=== PATIENT | female | born 1980 | race African-American/Black ===

== ENCOUNTER 2017-04-18 09:13 | Emergency (ER) | payer MEDICAID ==
[~2017-04-18] VITALS: Ht 170.2 cm; Wt 81.0 kg
[2017-04-18] MEDS ORDERED: BENADRYL (09:21)
[2017-04-18] MEDS ORDERED: VITAMINS (09:21)
[2017-04-18 11:26] VITALS: BP 126/84
[2017-04-18] MEDS ORDERED: PREDNISONE 20MG TABLET PO ONE (11:45)
== END 2017-04-18 11:47 | disposition home or self-care (01) ==
LOC: ER 09:55
DX: T78.40XA Allergy, unspecified, initial encounter (principal); X58.XXXA Exposure to other specified factors, initial encounter; Z91.018 Allergy to other foods; Z91.048 Other nonmedicinal substance allergy status
CPT/HCPCS: 99283; J7512

== ENCOUNTER 2023-09-11 21:32 | Emergency (ER) | payer MEDICAID, OTHER ==
[~2023-09-11] VITALS: Ht 172.7 cm; Wt 90.8 kg
[~2023-09-11 21:32] MED LIST: BENADRYL; VITAMINS
[2023-09-11 22:06] VITALS: O2SAT 99
[2023-09-11] MEDS ORDERED: NAPR-681 MT (22:43)
[2023-09-11] MEDS: LIDOCAINE 5% PATCH TOP SCH (22:56)
[2023-09-11] MEDS: ACETAMINOPHEN 325MG TABLET PO ONE (22:56)
[2023-09-11] MEDS: KETOROLAC 60MG/2ML VIAL IM ONE (22:57)
[2023-09-11 23:21] VITALS: BP 119/82; PULSE 74; RESP 20
== END 2023-09-11 23:23 | disposition home or self-care (01) ==
LOC: ER 21:32
DX: M54.50 Low back pain, unspecified (principal)
CPT/HCPCS: 99283; 96372; J1885

== ENCOUNTER 2024-06-06 15:49 | Emergency (ER) | payer OTHER ==
[~2024-06-06] VITALS: Ht 172.7 cm; Wt 82.0 kg
[~2024-06-06 15:49] MED LIST changes: +NAPR-681 MT
[2024-06-06 16:12] VITALS: O2SAT 100
[2024-06-06 16:44] LABS: CLARITY URINE CLEAR (CLEAR); COLOR URINE DARK YELLOW (YELLOW); GLUCOSE URINE NEGATIVE (NEGATIVE); KETONES URINE TRACE (NEGATIVE); LEUKOCYTE ESTERASE URINE 1+ (NEGATIVE); NITRITE URINE NEGATIVE (NEGATIVE); OCCULT BLOOD URINE 2+ (NEGATIVE); PROTEIN URINE TRACE (NEGATIVE); SPECIFIC GRAVITY URINE 1.027 (1.005-1.030)
[2024-06-06 16:45] LABS: BASOPHILS % 0.1 % (0.0-2.0); EOSINOPHILS % 0.2 % (0.0-5.0); HEMATOCRIT. 41.8 % (36.0-48.0); HEMOGLOBIN. 13.8 g/dL (12.0-16.0); LYMPHOCYTES % 26.8 % (20.0-50.0); MEAN CORPUSCULAR HEMOGLOBIN 28.5 pg (28.0-32.0); MEAN CORPUSCULAR HGB CONC 33.1 g/dL (31.0-37.0); MEAN CORPUSCULAR VOLUME 86.1 fL (81.0-99.0); MEAN PLATELET VOLUME 8.1 fl (7.4-10.4); MONOCYTES % 5.3 % (2.0-8.0); NEUTROPHILS % 67.6 % (40.0-76.0); PLATELET 323 x1000/uL (130-400); RED BLOOD CELL COUNT 4.85 mill/uL (4.2-5.4); RED CELL DISTRIBUTION WIDTH 14.6 % (11.6-14.6); WHITE BLOOD COUNT 8.2 x1000/uL (4.5-11.0)
[2024-06-06 16:52] LABS: CHLORIDE 104 mEq/L (98-107); SODIUM 139 mEq/L (136-145)
[2024-06-06 16:53] LABS: CALCIUM 10.1 mg/dL (8.7-10.4); CARBON DIOXIDE 25 mEq/L (21-32)
[2024-06-06] MEDS: ONDANSETRON 4MG ODT PO NR (16:54)
[2024-06-06 16:58] LABS: GLUCOSE 116 mg/dL (70-105); UREA NITROGEN BLOOD 12 mg/dL (9-23)
[2024-06-06] MEDS: ACETAMINOPHEN 325MG TABLET PO NR (17:23)
[2024-06-06 17:24] LABS: SQUAMOUS EPITHELIAL CELL URINE 2+ /lpf (RARE/1+)
[2024-06-06 17:25] LABS: BACTERIA URINE 1+
[2024-06-06] MEDS: IBUPROFEN 400MG TABLET PO NR (21:15)
[2024-06-06] MEDS ORDERED: NITR-87 MT (22:44)
[2024-06-06] MEDS ORDERED: ONDA-239 PO (22:44)
[2024-06-06 23:21] VITALS: BP 117/70; PULSE 76; RESP 14; TEMP 36.78072; O2SAT 100
== END 2024-06-06 23:22 | disposition home or self-care (01) ==
LOC: ER 15:49
DX: N39.0 Urinary tract infection, site not specified (principal); R10.13 Epigastric pain; Z98.890 Other specified postprocedural states; Z79.1 Long term (current) use of non-steroidal anti-inflammatories (NSAID)
CPT/HCPCS: 99284; 76705; 80048; 81003; 83690; 85025; 36415; Q0162